=== PATIENT | female | born 1955 | race Caucasian/White ===

== ENCOUNTER 2018-12-23 08:09 | Day surgery (SDC) | payer OTHER ==
[2018-12-23] MEDS ORDERED: FENTAnyl 50 MCG/ML VIAL (09:48)
[2018-12-23] MEDS ORDERED: MIDAZOLAM 1 MG/ML 2 ML INJ ×2 (09:48)
== END 2018-12-23 13:26 | disposition home or self-care (01) ==
LOC: GIL 08:09
DX: Z12.11 Encounter for screening for malignant neoplasm of colon (principal); D12.3 Benign neoplasm of transverse colon; K57.32 Diverticulitis of large intestine without perforation or abscess without bleeding; K64.8 Other hemorrhoids
CPT/HCPCS: 45380; 88305